=== PATIENT | female | born 1950 | race Caucasian/White ===

== ENCOUNTER 2017-02-23 10:32 | Inpatient (IN) | payer OTHER ==
[~2017-02-23] VITALS: Ht 177.8 cm; Wt 84.9 kg
[~2017-02-23 10:32] MED LIST: CALCIUM PO; FISH OIL1000 MG PO; LISINOPRIL/HCTZ PO; NAPROXEN250 MG PO; VICODIN EQUIVAL1 TAB PO; VITAMIN D-31000 UNIT PO
--- NOTE | 2017-02-23 20:04 | Postoperative Progress Note ---
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 High hip center compensated with +12 neck to equalize leg lengths. Procedure: R uncemented total hip arthroplasty Complications? No (Medial acetabular wall reamed) Condition: Stable EBL: 100 mL Fluid(s): 1 L LR Drain(s): Hemovac (put to suction on leaving PACU) Blood Administered: None Specimen(s) removed? No Grafts or Implants? Yes Graft/Implant type: Merino and Nephew Synergy porous plus DE LA TORRE size 11 std offset femoral component. 36 +12 oxinium head/neck. 52 mm R3 acetabular shell with 3 screws and central hole cover. 52 mm OD x 36 mm ID + 4 mm lat offeset 20 degree posteriosup elevated rim with XLPE UHMWPE liner. . (See nursing notes for details of grafts/implants)
[2017-02-23 21:24] VITALS: BP 120/80
[2017-02-23 21:39] VITALS: BP 118/78
[2017-02-23 21:55] VITALS: BP 114/75
[2017-02-23 22:19] VITALS: BP 120/79
--- NOTE | 2017-02-23 22:24 | DIAGNOSTIC IMAGING REPORT ---
PROCEDURE: XR HIP 2VW W W/O AP PELVIS-RT INDICATION: Right total hip replacement TECHNIQUE: AP view of the pelvis and hips with lateral view of the right hip. COMPARISON: Comparison is made to radiographs of the pelvis and hip from [facility] on 12/15/2016 and 02/15/2017. FINDINGS: RIGHT HIP: Interim placement of right total hip prosthesis with prosthetic components in anatomic position. Surgical drain. PELVIS: There is a subacute fracture of the right superior pubic ramus. Osseous pelvis is otherwise normal. IMPRESSION: 1. Placement of right total hip prosthesis (anatomic position). 2. Subacute fracture the right superior pubic ramus.
[2017-02-23 23:00] VITALS: BP 125/78
[2017-02-23 23:30] VITALS: BP 127/84
--- NOTE | 2017-02-23 23:41 | OPERATIVE REPORT ---
DATE OF SURGERY: 02/23/2017 SURGEON: dEdie Raymundo MD PREOPERATIVE DIAGNOSES: 1. 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 Osteoporosis with recent pubic rami fractures after a ground level fall, now clinically healed and radiographically healing POSTOPERATIVE DIAGNOSES: 1. 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 Osteoporosis with recent pubic rami fractures after a ground level fall, now clinically healed and radiographically healing PROCEDURE PERFORMED: 1. Right total hip arthroplasty with Merino and Nephew Synergy size 11 standard offset porous plus DE LA TORRE femoral component, 36 mm diameter +12 neck length Oxinium femoral head, 52 mm R3 acetabular shell with stiction, secured with 3 screws and medial bone graft from the femoral head. The acetabular liner was 36 mm ID x 52 mm OD Lateralize +4 R3 XLPE 20-degree posterior superior elevated lip ultra-high molecular weight highly cross-linked polyethylene. ANESTHESIA: General endotracheal after failed spinal attempt. ESTIMATED BLOOD LOSS: 100 mL. FLUIDS: Blood replacement, 1 L intravenous Lactated Ringer's crystalloid fluid, no blood products. URINE OUTPUT: 300 mL per Cooper. PATHOLOGY SPECIMEN: None. DRAINS: One medium Hemovac to be placed on suction when the patient leaves the recovery room. INDICATIONS: A 66-year-old female with longstanding severe right hip pain causing her to fall and sustain a right superior and probably inferior pubic rami fractures in December, has gone on to heal those fractures clinically and to be healing radiographically and is indicated for right total hip arthroplasty with attempt to correct her limb length inequality. Her pain and function have been refractory to nonoperative treatment. SURGICAL FINDINGS: Bone quality was soft. Attempts to reestablish the anatomic hip center distally and medially were met with soft bone and violation of the medial wall of the acetabulum. Therefore, the femoral head was used as bone graft for the medial acetabulum and the acetabular shell was placed in the false acetabulum and a lateralizing liner was used to provide extra thickness for the acetabular polyethylene and to bring the hip center back toward the normal position. Leg length was then corrected with the + 12 neck length. Limb lengths were palpably equal, soft tissue tension was good with only slight tightness of the rectus femoris. Hip stability was good with absolute stability to external rotation and extension, adduction and stability to 60 degrees of internal rotation in the position of sleep, 60 degrees of flexion, maximum adduction and she was stable to approximately 60 degrees of internal rotation and 90 degrees of flexion and neutral adduction as well. The acetabular shell had a good rim fit in its seated position with excellent purchase of all 3 screws and therefore, it was felt safe for her to be weightbearing as tolerated with posterior hip precautions postoperatively. Postoperative plan: We will check x-rays in the recovery room. She will get 23 hours of perioperative antibiotics. Thromboembolic prophylaxis will be with knee-high OMAR hose and SCDs bilaterally and enteric-coated aspirin 325 mg twice daily for 6 weeks. She will be discharged home when standard criteria are met and return to clinic in 2 weeks' time for a wound check and 6 weeks' time for further followup. SURGICAL TECHNIQUE: The patient was identified in the preoperative holding area. I marked her operative site with her consent. She had all of her questions further invited and answered. She denied any interval change in her medical condition. She had received preoperative medical clearance from her primary care provider. She was seen and interviewed by Anesthesia and nursing team members, and brought back to the operating room where she was placed on the OR table and general endotracheal anesthesia was administered after attempts at spinal anesthesia were poorly tolerated due to hip pain. She was then placed in the right side up lateral decubitus position with an axillary roll after the Cooper catheter was placed. The dependent leg had been fit with a pneumatic compression device over knee-high OMAR hose and was flexed 45 degrees at the hip and 90 degrees at the knee. There was easily 3/4 of an inch of apparent limb length inequality in the thigh segment of the lower limbs. The perineum and thorax were isolated off with plastic adhesive barrier U drapes and the right hindquarter was prepped with ChloraPrep from these drapes to the tips of the toes in a sterile fashion after surgical pause was completed, confirming the correct patient, operative site, procedure, appropriate availability of the implants, instrumentation. Perioperative antibiotics were given in the form of 2 g of intravenous cefazolin , 1 g of tranexamic acid was given prior to incision intravenously. Pneumatic compression devices were confirmed to be running. The patient had no allergies. Everyone in the room agreed that we should proceed. After sterile prep and drape was completed, we marked our posterior approach to the right hip and incision was made through skin and superficial dermis with scalpel through deep dermis and subcutaneous adipose tissue with electrocautery. The fascia was identified, swept, divided in line with the incision, splitting the gluteus britt proximally and the fascia charli distally. Greater trochanteric bursa tissue was thickened and removed as necessary for visualization of structures. The piriformis tendon was identified and released from its insertion and tagged with #2 FiberWire for subsequent repair. A hockey stick capsulotomy incorporating the short external rotators was then made and tagged with #2 FiberWire for subsequent repair and interval retraction. Electrocautery was used to cauterize a liter presumed from the medial circumflex and ascending branch. The sciatic nerve was palpated and kept out of harm's way, but not specifically visualized. The hip was dislocated posteriorly and had a deformed femoral head. The proximal femoral osteotomy was made using the template approximately a fingerbreadth above the lesser trochanter and the lateral portion of the osteotomy was made in line with the axis of the femur along the medial border of the greater trochanter. Next, the femoral head was removed and the acetabulum exposed. Exposure was difficult due to the deformity in the acetabulum and the soft quality of the bone making retractors likely to either cut through bone or leave her out. We were able to excise the remnants of the torn labrum and the soft tissue contents of the pulvinar. During reaming arterial bleeding was encountered in the inferior acetabulum and quarterized. Attempts were made to reestablish the hip center by medializing the acetabular socket position. Unfortunately, due to the poor quality of bone there the medial wall was violated and the decision was made to use the femoral head for bone graft. The smallest acetabular reamer was used to ream the femoral head with the exception of any soft tissues and use this for packing the medial acetabulum. Additional reamings from the acetabulum had been saved as well. We reamed up to a 51. I used the 2 mm drill to perforate the sclerotic bone at the superior false acetabulum to allow for bony ingrowth as well. A trial acetabular shell was placed and felt to fit well in the false acetabular position. This was then removed, bulb syringe was used to irrigate and the bone graft placed medially. This was packed in manually. The 52 mm R3 shell with stiction was then impacted into position with approximately 40 degrees of abduction and 20 degrees of anteversion and actually had a very good stiction business services intern to the pelvis through its rim fit. The decision, however , was made to proceed with screw fixation for additional stability. Three screws were placed in the superior and posterior quadrant of the 3-hole cup, each one attained excellent purchase and they ranged from 25 mm in length to 35 mm and 40 mm. The central hole cover was placed after packing additional bone graft through the central hole into the medial acetabulum. Pulse lavage was used to cleanse the inner surface of the acetabular shell and then the 4 mm lateralizing liner with 20-degree elevated rim placed posteriorly and slightly superiorly was impacted into position and seen to sit properly flush with the tabs in the scalloped shell. This was packed off with a laparotomy sponge and the proximal femur was delivered into the wound. The box osteotome was used to open the canal. The canal finder used to localize the axis of the canal, which was then suctioned to minimize risk of fat embolism. We manually reamed up to an 11 mm size stem and used broaches beginning small and going up to 11 mm. Calcar planer was then utilized to fine tune the proximal femoral osteotomy. The proximal femur was inspected and no split fractures were seen. The standard offset neck adapter was then placed and we trialed +0, +4, +8 and +12 neck lengths. We decided it would be either +8 or +12 based limb length and stability and soft tissue tension. The femoral broach was removed and the definitive femoral component was impacted into position in appropriate anatomic anteversion. Again, there were no fractures in the proximal femur appreciated on direct inspection. We retrialed the +8 and +12 36 mm head trial and decided that +12 provided the best limb length inequality, acceptable soft tissue tension and stability as described above in the operative findings. The femoral Carr taper trunnion was then cleaned with pulse lavage, dried and the definitive 36 mm diameter Oxinium femoral head with +12 neck length was impacted into position and checked to make sure it was secure. It was then carefully reduced into the acetabular socket and stability rechecked and was unchanged from described above. The wound was copiously irrigated with pulsatile lavage and closed in layers using drill holes in the greater trochanter for the capsular repair with the short external rotators. The piriformis was sutured to the abductor tendon. The drain was placed exiting anteriorly and inferiorly and the fascia charli and gluteal fascia were closed with [id number] 0 Vicryl, which was also used to close Sara fascia , inverted undyed 2-0 Vicryl was used for the subdermal closure and 3-0 V-Loc for the subcuticular closure followed by Steri-Strips and Dermabond for the skin. The dressing was Adaptic, 4 x 4s, and Op-Site. A special drain sponge was used. The drain was used as a conduit to inflate the operative site with one more gram of tranexamic acid and 0.25% Marcaine with epinephrine. The patient was undraped, the abductor pillow placed, as well as the OMAR hose and SCD on the operative leg. The patient was reversed from anesthesia and brought to the recovery room in stable and satisfactory condition having tolerated the procedure well without apparent complication. All sponge, needle and instrument counts were reported correct prior to leaving the operating room.
[2017-02-24 02:48] VITALS: BP 113/69
[2017-02-24 07:04] VITALS: BP 110/75
--- NOTE | 2017-02-24 09:34 | Progress Note ---
Late Entry Date/Time Late Entry Date and Time LATE ENTRY Date of visit: 02/24/17 Time of visit: 0820 Subjective General C/O sore throat p GET. Had R hip pain with mobilzation attempts. Denies CP/SOB/ N/T/W Constitutional Denies: Fever, Chills, Sweats, Weakness. Neurological Denies: Weakness, Numbness. Physical Exam Vital Signs / I&Os Vital Signs Date Time Temp Pulse Resp B/P Pulse O2 O2 Flow FiO2 Ox Delivery Rate 02/24 0744 1.0 02/24 0704 37.0 101 18 110/75 96 Nasal 1.0 Cannula 02/24 0248 37.3 99 14 113/69 97 Nasal 1.0 Cannula 02/24 0020 Room Air 1.0 02/23 2330 36.4 98 14 127/84 98 Nasal 2.0 Cannula 02/23 2300 36.8 95 14 125/78 98 Nasal 3.0 Cannula 02/23 2219 89 12 120/79 96 Nasal 1.0 Cannula 02/23 2203 2.0 02/23 2155 84 14 114/75 93 Nasal 2.0 Cannula 02/23 2139 73 16 118/78 96 Nasal 2.0 Cannula 02/23 2124 36.5 78 16 120/80 97 Nasal 2.0 Cannula / 2110 70 15 116/78 99 Nasal 2.0 Cannula / 2105 36.7 73 21 108/91 99 Nasal 2.0 Cannula / 2100 75 24 119/77 98 Nasal 2.0 Cannula /5 77 20 102/45 96 Nasal 3.0 Cannula /0 77 21 107/62 97 Nasal 3.0 Cannula 05/17 0 81 20 108/90 95 Nasal 3.0 Cannula 05/17 2034 79 13 105/81 95 Nasal 3.0 Cannula /17 2029 36.3 81 14 106/69 95 Nasal 3.0 Cannula 05/17 5 81 13 114/64 93 Nasal 3.0 Cannula 05/17 2019 82 17 115/69 94 Nasal 3.0 Cannula /17 2014 84 18 131/99 96 Nasal 3.0 Cannula /17 2009 84 18 132/77 95 Nasal 3.0 Cannula /2004 91 19 85/53 94 Nasal 3.0 Cannula /1999 90 20 102/65 95 Nasal 3.0 Cannula 05/17 1958 36.1 94 16 101/66 93 Nasal 4.0 Cannula 02/23 1102 12 02/23 1029 36.1 54 18 133/79 98 I&O 02/24 0000 02/23 1600 02/23 0800 Intake Total 6770 100 Output Total 5700 Balance 1070 100 General Appearance Alert, Oriented X3, Cooperative, No acute distress HEENT Normal exam, Atraumatic Skin No Rashes, No Breakdown, No Significant Lesions, Dressings CDI. 100 mL bloody drainage in drain overnight. Neurological Normal speech, Sensation intact, fires B E&FHLs & AD&PFs Psych/Mental Status Mental status normal, Mood normal, Confused LAB Results Laboratory Tests 02/24 02/23 0510 1050 Chemistry Plasma Sodium (136 - 145 mmol/L) 142 141 Plasma Potassium (3.5 - 5.1 mmol/L) 4.4 3.7 Plasma Chloride (98 - 107 mmol/L) 103 104 CO2 (Enzymatic) (21 - 32 mmol/L) 29 26 BUN (7 - 18 mg/dL) 23 19 Creatinine (0.6 - 1.3 mg/dL) 0.9 0.8 Est GFR ( Amer) (mL/min) >60 >60 Est GFR (Non-Af Amer) (mL/min) >60 >60 Glucose (70 - 110 mg/dL) 135 109 Plasma Calcium (8.5 - 10.1 mg/dL) 8.6 8.8 Coagulation INR (0.8 - 1.2) 0.9 Hematology WBC (4.5 - 11.5 K/uL) 7.9 RBC (4.00 - 5.20 M/uL) 4.32 Hgb (12.0 - 16.0 gm/dL) 12.2 13.6 Hct (36.0 - 46.0 %) 36.6 41.0 MCV (80 - 100 fL) 95 MCH (26 - 34 pg) 31 RDW (11.6 - 14.8 %) 14.2 Neut % (Auto) (50 - 75 %) 76.7 Lymph % (Auto) (25 - 40 %) 14.5 [place] % (Auto) (3 - 14 %) 6.1 Eos % (Auto) (0 - 4 %) 2.5 Baso % (Auto) (0 - 2 %) 0.2 Plt Count, EDTA (150 - 400 K/uL) 236 PUBS MCHC (31 - 37 g/dL) [address] [place] [address] Imaging Department Name: TEMO ANDUJAR : 48 Sex: Female Age: 66 MR#: [id number] Pt Status: ADM IN Ordering Provider: ENEIDA WALTON MD REPORT #: [id number] DATE OF EXAM(S): 02/23/17 PROCEDURE: XR HIP 2VW W W/O AP PELVIS-RT INDICATION: Right total hip replacement TECHNIQUE: AP view of the pelvis and hips with lateral view of the right hip. COMPARISON: Comparison is made to radiographs of the pelvis and hip from [facility] on 12/15/2016 and 02/15/2017. FINDINGS: RIGHT HIP: Interim placement of right total hip prosthesis with prosthetic components in anatomic position. Surgical drain. PELVIS: There is a subacute fracture of the right superior pubic ramus. Osseous pelvis is otherwise normal. IMPRESSION: 1. Placement of right total hip prosthesis (anatomic position). 2. Subacute fracture the right superior pubic ramus. Dictated by: HELDER GONZALEZ MD D: BEBO;02/23/17 2224 <Electronically signed by HELDER GONZALEZ MD in OV> 02/23/172223 cc: Erica; VANESSA ALVES MD; ENEIDA WALTON MD Technologist: IM.RFM No periprosthetic fx seen. R KASIA reduced and in acceptable position. Assessment and Plan Problem List 1. Status post total hip replacement, right Plan Doing well POD#1 s/p R KASIA. Start PT WBAT w walker and R posterior hip precautions. Leave drain and mendoza for now. Rech hct in AM.
--- NOTE | 2017-02-24 09:34 | Progress Note ---
Late Entry Date/Time Late Entry Date and Time LATE ENTRY Date of visit: 02/24/17 Time of visit: 0820 Subjective General C/O sore throat p GET. Had R hip pain with mobilzation attempts. Denies CP/SOB/ N/T/W Constitutional Denies: Fever, Chills, Sweats, Weakness. Neurological Denies: Weakness, Numbness. Physical Exam Vital Signs / I&Os Vital Signs Date Time Temp Pulse Resp B/P Pulse O2 O2 Flow FiO2 Ox Delivery Rate 02/24 0744 1.0 02/24 0704 37.0 101 18 110/75 96 Nasal 1.0 Cannula 02/24 0248 37.3 99 14 113/69 97 Nasal 1.0 Cannula 02/24 0020 Room Air 1.0 02/23 2330 36.4 98 14 127/84 98 Nasal 2.0 Cannula 02/23 2300 36.8 95 14 125/78 98 Nasal 3.0 Cannula 02/23 2219 89 12 120/79 96 Nasal 1.0 Cannula 02/23 2203 2.0 02/23 2155 84 14 114/75 93 Nasal 2.0 Cannula 02/23 2139 73 16 118/78 96 Nasal 2.0 Cannula 02/23 2124 36.5 78 16 120/80 97 Nasal 2.0 Cannula / 2110 70 15 116/78 99 Nasal 2.0 Cannula / 2105 36.7 73 21 108/91 99 Nasal 2.0 Cannula / 2100 75 24 119/77 98 Nasal 2.0 Cannula /5 77 20 102/45 96 Nasal 3.0 Cannula /0 77 21 107/62 97 Nasal 3.0 Cannula 05/17 0 81 20 108/90 95 Nasal 3.0 Cannula 05/17 2034 79 13 105/81 95 Nasal 3.0 Cannula /17 2029 36.3 81 14 106/69 95 Nasal 3.0 Cannula 05/17 5 81 13 114/64 93 Nasal 3.0 Cannula 05/17 2019 82 17 115/69 94 Nasal 3.0 Cannula /17 2014 84 18 131/99 96 Nasal 3.0 Cannula /17 2009 84 18 132/77 95 Nasal 3.0 Cannula /2004 91 19 85/53 94 Nasal 3.0 Cannula /1999 90 20 102/65 95 Nasal 3.0 Cannula 05/17 1958 36.1 94 16 101/66 93 Nasal 4.0 Cannula 02/23 1102 12 02/23 1029 36.1 54 18 133/79 98 I&O 02/24 0000 02/23 1600 02/23 0800 Intake Total 6770 100 Output Total 5700 Balance 1070 100 General Appearance Alert, Oriented X3, Cooperative, No acute distress HEENT Normal exam, Atraumatic Skin No Rashes, No Breakdown, No Significant Lesions, Dressings CDI. 100 mL bloody drainage in drain overnight. Neurological Normal speech, Sensation intact, fires B E&FHLs & AD&PFs Psych/Mental Status Mental status normal, Mood normal, Confused LAB Results Laboratory Tests 02/24 02/23 0510 1050 Chemistry Plasma Sodium (136 - 145 mmol/L) 142 141 Plasma Potassium (3.5 - 5.1 mmol/L) 4.4 3.7 Plasma Chloride (98 - 107 mmol/L) 103 104 CO2 (Enzymatic) (21 - 32 mmol/L) 29 26 BUN (7 - 18 mg/dL) 23 19 Creatinine (0.6 - 1.3 mg/dL) 0.9 0.8 Est GFR ( Amer) (mL/min) >60 >60 Est GFR (Non-Af Amer) (mL/min) >60 >60 Glucose (70 - 110 mg/dL) 135 109 Plasma Calcium (8.5 - 10.1 mg/dL) 8.6 8.8 Coagulation INR (0.8 - 1.2) 0.9 Hematology WBC (4.5 - 11.5 K/uL) 7.9 RBC (4.00 - 5.20 M/uL) 4.32 Hgb (12.0 - 16.0 gm/dL) 12.2 13.6 Hct (36.0 - 46.0 %) 36.6 41.0 MCV (80 - 100 fL) 95 MCH (26 - 34 pg) 31 RDW (11.6 - 14.8 %) 14.2 Neut % (Auto) (50 - 75 %) 76.7 Lymph % (Auto) (25 - 40 %) 14.5 [place] % (Auto) (3 - 14 %) 6.1 Eos % (Auto) (0 - 4 %) 2.5 Baso % (Auto) (0 - 2 %) 0.2 Plt Count, EDTA (150 - 400 K/uL) 236 PUBS MCHC (31 - 37 g/dL) [address] [place] [address] Imaging Department Name: TEMO ANDUJAR : 48 Sex: Female Age: 66 MR#: [id number] Pt Status: ADM IN Ordering Provider: ENEIDA WALTON MD REPORT #: [id number] DATE OF EXAM(S): 02/23/17 PROCEDURE: XR HIP 2VW W W/O AP PELVIS-RT INDICATION: Right total hip replacement TECHNIQUE: AP view of the pelvis and hips with lateral view of the right hip. COMPARISON: Comparison is made to radiographs of the pelvis and hip from [facility] on 12/15/2016 and 02/15/2017. FINDINGS: RIGHT HIP: Interim placement of right total hip prosthesis with prosthetic components in anatomic position. Surgical drain. PELVIS: There is a subacute fracture of the right superior pubic ramus. Osseous pelvis is otherwise normal. IMPRESSION: 1. Placement of right total hip prosthesis (anatomic position). 2. Subacute fracture the right superior pubic ramus. Dictated by: HELDER GONZALEZ MD D: BEBO;02/23/17 2224 <Electronically signed by HELDER GONZALEZ MD in OV> 02/23/172223 cc: Erica; VANESSA ALVES MD; ENEIDA WALTON MD Technologist: IM.RFM No periprosthetic fx seen. R KASIA reduced and in acceptable position. Assessment and Plan Problem List 1. Status post total hip replacement, right Plan Doing well POD#1 s/p R KASIA. Start PT WBAT w walker and R posterior hip precautions. Leave drain and mendoza for now. Rech hct in AM.
[2017-02-24 11:19] VITALS: BP 108/65
[2017-02-24 14:28] VITALS: BP 129/82
[2017-02-24 18:23] VITALS: BP 113/77
[2017-02-24 22:51] VITALS: BP 117/73
[2017-02-25 02:50] VITALS: BP 106/71
[2017-02-25 06:49] VITALS: BP 125/70
--- NOTE | 2017-02-25 08:28 | Progress Note ---
Subjective General No c/o. Voided, topl PO but no BM yet. Needs to work with PT on stairs for clearance to DC home likely tomorrow. Constitutional Denies: Fever, Chills, Sweats, Weakness, Malaise. Respiratory Denies: Cough, SOB w/exertion. Cardiovascular Denies: Chest Pain. Gastrointestinal Denies: Nausea, Vomiting, Abdominal Pain. Neurological Denies: Weakness, Numbness, Change in speech, Confusion. Physical Exam Vital Signs / I&Os Vital Signs Date Time Temp Pulse Resp B/P Pulse O2 O2 Flow FiO2 Ox Delivery Rate 02/25 0649 36.8 104 18 125/70 94 02/25 0250 36.7 108 16 106/71 96 Room Air 02/24 2251 37.1 115 16 117/73 93 Room Air 02/24 1823 37.3 114 16 113/77 94 Room Air 02/24 1428 36.9 107 18 129/82 97 Room Air 02/24 1119 37.4 104 18 108/65 96 Room Air 02/24 0900 Room Air I&O 02/25 0000 02/24 1600 02/24 0800 Intake Total 300 600 800 Output Total 825 350 400 Balance -525 250 400 General Appearance Alert, Oriented X3, Cooperative, No acute distress Extremities No calf tenderness B. No gross LLD. Skin No Rashes, No Breakdown, No Significant Lesions, Dressings CDI Neurological Normal speech, Normal tone, Sensation intact, Fires B AD&PFs Psych/Mental Status Mental status normal, Mood normal LAB Results Laboratory Tests 02/25 0510 Chemistry Plasma Sodium (136 - 145 mmol/L) 142 Plasma Potassium (3.5 - 5.1 mmol/L) 4.3 Plasma Chloride (98 - 107 mmol/L) 106 CO2 (Enzymatic) (21 - 32 mmol/L) 29 BUN (7 - 18 mg/dL) 25 Creatinine (0.6 - 1.3 mg/dL) 0.9 Est GFR ( Amer) (mL/min) >60 Est GFR (Non-Af Amer) (mL/min) >60 Glucose (70 - 110 mg/dL) 118 Plasma Calcium (8.5 - 10.1 mg/dL) 8.3 Hematology WBC (4.5 - 11.5 K/uL) 8.3 RBC (4.00 - 5.20 M/uL) 3.53 Hgb (12.0 - 16.0 gm/dL) 11.0 Hct (36.0 - 46.0 %) 33.7 MCV (80 - 100 fL) 95 MCH (26 - 34 pg) 31 RDW (11.6 - 14.8 %) 14.2 Neut % (Auto) (50 - 75 %) 74.1 Lymph % (Auto) (25 - 40 %) 15.6 [place] % (Auto) (3 - 14 %) 8.7 Eos % (Auto) (0 - 4 %) 1.3 Baso % (Auto) (0 - 2 %) 0.3 Plt Count, EDTA (150 - 400 K/uL) 175 PUBS MCHC (31 - 37 g/dL) 33 Assessment and Plan Problem List 1. Status post total hip replacement, right Plan Doing well POD#2. Cont PT, DVT proph. and PT. Will need BM and PT clearance prior to DC home tomorrow on ECASA 325mg 2x/d x 6 weeks anp posterior hip precautions. Chucho F/U APPT 03/03.
[2017-02-25 10:22] VITALS: BP 139/71
[2017-02-25 14:24] VITALS: BP 121/64
[2017-02-25 18:48] VITALS: BP 123/65
[2017-02-25 22:31] VITALS: BP 112/64
[2017-02-26 02:38] VITALS: BP 107/72
[2017-02-26 07:00] VITALS: BP 113/77
--- NOTE | 2017-02-26 10:46 | Progress Note ---
Subjective General Just had BM! Lucila diet, voided, cleared for DC home with HHPT. Constitutional Denies: Fever, Chills, Sweats, Weakness, Malaise. Respiratory Denies: Cough, Dry, SOB w/exertion. Cardiovascular Denies: Chest Pain. Skin Denies: Rash, Lesions, Bruising. Neurological Denies: Weakness, Numbness, Change in speech, Confusion. Physical Exam Vital Signs / I&Os Vital Signs Date Time Temp Pulse Resp B/P Pulse O2 O2 Flow FiO2 Ox Delivery Rate 02/26 0700 36.9 103 20 113/77 92 Room Air 02/26 0238 36.8 109 18 107/72 94 Room Air 02/25 2231 37.3 117 18 112/64 94 Room Air 02/25 1848 36.8 108 18 123/65 95 Room Air 02/25 1645 Room Air 02/25 1424 37.1 111 18 121/64 95 I&O 02/26 0000 02/25 1600 02/25 0800 Intake Total 570 840 480 Output Total 350 500 150 Balance 220 340 330 General Appearance Alert, Oriented X3, Cooperative, No acute distress HEENT Normal exam Lungs Normal air movement Extremities No tenderness, No calf tenderness B. LE length and rotation grossly =. Skin No Rashes, No Breakdown, No Significant Lesions, Incision and drain site clean, dry and closed. Neurological Normal exam, Sensation intact, No lateralizing signs, Fires B AD& PFs Psych/Mental Status Mental status normal, Mood normal LAB Results Laboratory Tests 02/26 06 Chemistry Plasma Sodium (136 - 145 mmol/L) 141 Plasma Potassium (3.5 - 5.1 mmol/L) 4.2 Plasma Chloride (98 - 107 mmol/L) 106 CO2 (Enzymatic) (21 - 32 mmol/L) 27 BUN (7 - 18 mg/dL) 21 Creatinine (0.6 - 1.3 mg/dL) 0.7 Est GFR ( Amer) (mL/min) >60 Est GFR (Non-Af Amer) (mL/min) >60 Glucose (70 - 110 mg/dL) 108 Plasma Calcium (8.5 - 10.1 mg/dL) 8.5 Hematology WBC (4.5 - 11.5 K/uL) 6.8 RBC (4.00 - 5.20 M/uL) 3.32 Hgb (12.0 - 16.0 gm/dL) 10.6 Hct (36.0 - 46.0 %) 31.5 MCV (80 - 100 fL) 95 MCH (26 - 34 pg) 32 RDW (11.6 - 14.8 %) 13.9 Neut % (Auto) (50 - 75 %) 70.2 Lymph % (Auto) (25 - 40 %) 17.9 [place] % (Auto) (3 - 14 %) 8.3 Eos % (Auto) (0 - 4 %) 3.0 Baso % (Auto) (0 - 2 %) 0.6 Plt Count, EDTA (150 - 400 K/uL) 169 PUBS MCHC (31 - 37 g/dL) 34 Assessment and Plan Problem List 1. Status post total hip replacement, right Plan Doing well POD#3. Will DC home on PO pain meds, ECASA 325mg PO 2x/day x 6 weeks ; with HHPT, WBAT w/posterior R hip precautions x 6 weeks. RTC as scheduled . Call for Sx DVT/PE/infxn or any ?s.
[2017-02-26] MEDS ORDERED: FERROUS SULFATE PO (11:03)
[2017-02-26] MEDS ORDERED: VICODIN EQUIVAL1 TAB PO (11:03)
[2017-02-26] MEDS ORDERED: ENTERIC COATED325 M1 PO (11:04)
[2017-02-26] MEDS ORDERED: HYDROXYZINE PAM25 MG PO (11:05)
[2017-02-26] MEDS ORDERED: DOCUSATE SODIU100 MG PO (11:06)
[2017-02-26 11:08] VITALS: BP 116/73
--- NOTE | 2017-02-26 11:13 | Provider's Discharge Care Plan ---
Problem, Goal, Plan Problem List 1. Status post total hip replacement, right Goals: Improve function, Increase independence Instructions: Follow up as directed, Take meds as directed, Keep dressing clean, dry and intact. Call for signs of infection, chest pain, shortness of breath. [place] posterior hip precautions. Work with home health PT. Use walker and pillow between knees.
--- NOTE | 2017-02-26 11:25 | Discharge Summary ---
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 Discharge Diagnosis S/P R KASIA. Brief History see H&P Hospital Course Uneventful. Cleared PT WBAT with walker and R posterior hip precautions. Hct stabilized in low 30s. Lucila diet, voiding had BM. General Appearance Alert, Oriented X3, Cooperative Lab/Imaging Laboratory Tests 02/26 619 Chemistry Plasma Sodium (136 - 145 mmol/L) 141 Plasma Potassium (3.5 - 5.1 mmol/L) 4.2 Plasma Chloride (98 - 107 mmol/L) 106 CO2 (Enzymatic) (21 - 32 mmol/L) 27 BUN (7 - 18 mg/dL) 21 Creatinine (0.6 - 1.3 mg/dL) 0.7 Est GFR ( Amer) (mL/min) >60 Est GFR (Non-Af Amer) (mL/min) >60 Glucose (70 - 110 mg/dL) 108 Plasma Calcium (8.5 - 10.1 mg/dL) 8.5 Hematology WBC (4.5 - 11.5 K/uL) 6.8 RBC (4.00 - 5.20 M/uL) 3.32 Hgb (12.0 - 16.0 gm/dL) 10.6 Hct (36.0 - 46.0 %) 31.5 MCV (80 - 100 fL) 95 MCH (26 - 34 pg) 32 RDW (11.6 - 14.8 %) 13.9 Neut % (Auto) (50 - 75 %) 70.2 Lymph % (Auto) (25 - 40 %) 17.9 [place] % (Auto) (3 - 14 %) 8.3 Eos % (Auto) (0 - 4 %) 3.0 Baso % (Auto) (0 - 2 %) 0.6 Plt Count, EDTA (150 - 400 K/uL) 169 PUBS MCHC (31 - 37 g/dL) 34 Discharge Instructions/Meds See DC instructions and orders.
--- NOTE | 2017-02-26 12:29 | Discharge Summary ---
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 Discharge Diagnosis s/p R total hip replacement Brief History see H&P Hospital Course Uneventful, pain controlled with oxycodone, DVT ruled out with ultrasound day of discharge. Discharge Instructions/Meds Keep dressings and steristrip on, keep incision dry. Return to clinic 03/03/17. Follow right posterior hip precautions, full weight bearing with a walker and fall precautions. Take Indomethacin 25 mg 3x/day or 75mg ER once daily for 6 weeks, if unable to obtain Indomethacin then use Ibuprofen 800 mg 3x/day with food instead. Take enteric coated aspirin 325 mg 2x/day for 6 weeks post-op. Call for any fever > 101F, chills, drainage, chest pain or shortness of breath.
== END 2017-02-26 13:15 | disposition home or self-care (01) | DRG 470 ==
LOC: SCU SRH 10:32 → U SRH 12:30 → ACUTE2 SRH 21:42
PROVIDERS: ADMIT Orthopaedic Surgery
PROC: 0QU407Z Supplement Right Acetabulum with Autologous Tissue Substitute, Open Approach (ICD-10-PCS; principal; 2017-02-23 12:30)
PROC: 0SR90JA Replacement of Right Hip Joint with Synthetic Substitute, Uncemented, Open Approach (ICD-10-PCS; principal; 2017-02-23 12:30)
DX: M87.051 Idiopathic aseptic necrosis of right femur (principal); M80.051D Age-related osteoporosis with current pathological fracture, right femur, subsequent encounter for fracture with routine healing; M89.751 Major osseous defect, right pelvic region and thigh; I10 Essential (primary) hypertension; I83.93 Asymptomatic varicose veins of bilateral lower extremities